=== PATIENT | male | born 1980 | race American Indian/Alaskan Native ===

== ENCOUNTER 2018-11-15 10:33 | Emergency (ER) | payer OTHER ==
[2018-11-15 11:04] LABS: Basophils % (Auto) 0.7 % (0.0-1.8); Eosinophils # (Auto) 0.1 K/mm3 (0.0-0.4); Eosinophils % (Auto) 1.7 % (0.0-4.3); Hematocrit 45.8 % (35.5-45.6); Lymphocytes # (Auto) 2.8 K/mm3 (1.2-5.4); Lymphocytes % (Auto) 37.7 % (13.4-35.0); Mean Corpuscular HGB Conc 35 % (32-34); Mean Corpuscular Volume 91 fl (84-94); Monocytes # (Auto) 0.3 K/mm3 (0.0-0.8); Monocytes % (Auto) 3.5 % (0.0-7.3); Platelet Count 216 K/mm3 (140-440); Red Blood Count 5.03 M/mm3 (3.65-5.03); Red Cell Distribution Width 13.1 % (13.2-15.2)
--- NOTE | 2018-11-15 11:04 | Emergency Department Report ---
HPI - General Chief Complaint: Abdominal Pain Time Seen by Provider: 11/15/18 10:39 - HPI HPI: 38-year-old -[place] male presents to the emergency department with complaint of some left lower quadrant abdominal pain. The patient says that he's been dealing with some intermittent abdominal pains over the past 2 weeks that previously was more generalized lower abdomen and felt like he had a pulled muscle. However this morning he had some nausea and vomiting, diarrhea, and this left lower quadrant abdominal pain. He denies any dysuria, penile discharge, fever, back pain. The patient's is very concerned that he has gonorrhea and/or chlamydia as she says that she got it 5 years ago and that it "must have come from him." He did not take anything for her symptoms prior to presentation. He denies any past medical history. No recent travel or sick contacts at home. Patient also says that when he was vomiting earlier, he noticed some blood in the vomit. However this resolved upon EMS arrival. ED Past Medical Hx - Past Medical History Previous Medical History?: No - Surgical History Past Surgical History?: No - Social History Smoking Status: Current Every Day Smoker Substance Use Type: None - Medications Home Medications: Home Medications Medication Instructions Recorded Confirmed Last Taken Type ALBUTEROL Inhaler (OR & NICU) 2 puff IH QID PRN #1 inhalation 08/03/18 Unknown Rx [ProAir HFA Inhaler] Azithromycin [Zithromax] 250 mg PO DAILY #6 tablet 08/03/18 Unknown Rx predniSONE [Deltasone] 20 mg PO QDAY #5 tab 08/03/18 Unknown Rx HYDROcodone/APAP 5-325 [[place] 1 each PO Q6HR PRN #10 tablet 11/15/18 Unknown Rx 5/325] Sulfamethoxazole/Trimethoprim 1 each PO BID #10 tablet 11/15/18 Unknown Rx [Bactrim DS TAB] Tamsulosin [Flomax] 0.4 mg PO QDAY #5 cap 11/15/18 Unknown Rx ED Review of Systems ROS: Stated complaint: ABD PAIN Other details as noted in HPI Comment: All other systems reviewed and negative Constitutional: denies: chills, fever Eyes: denies: eye pain, vision change ENT: denies: ear pain, throat pain Respiratory: denies: cough, shortness of breath Cardiovascular: denies: chest pain, palpitations Gastrointestinal: abdominal pain, nausea, vomiting, diarrhea Genitourinary: denies: dysuria, discharge Musculoskeletal: denies: back pain, arthralgia Skin: denies: rash, lesions Neurological: denies: headache, weakness Physical Exam - Physical Exam Vital Signs: Vital Signs 11/15/18 11/15/18 10:37 10:41 Temperature 98.3 F Pulse Rate 56 L Respiratory 20 20 Rate Blood Pressure 159/103 [Left] O2 Sat by Pulse 99 99 Oximetry Physical Exam: GENERAL: The patient is well-developed well-nourished. HENT: Normocephalic. Atraumatic. Patient has moist mucous membranes. EYES: Extraocular motions are intact. NECK: Supple. Trachea is midline. CHEST/LUNGS: Clear to auscultation. There is no respiratory distress noted. HEART/CARDIOVASCULAR: Regular. There is no tachycardia. There is no murmur. ABDOMEN: Abdomen is soft. Unable to reproduce left lower quadrant abdominal pain to palpation. No guarding. Patient has normal bowel sounds. There is no abdominal distention. SKIN: Skin is warm and dry. NEURO: The patient is awake, alert, and oriented. The patient is cooperative. The patient has no focal neurologic deficits. The patient has normal speech. MUSCULOSKELETAL: There is no tenderness or deformity. There is no limitation range of motion. There is no evidence of acute injury. ED Course Vital Signs 11/15/18 11/15/18 10:37 10:41 Temperature 98.3 F Pulse Rate 56 L Respiratory 20 20 Rate Blood Pressure 159/103 [Left] O2 Sat by Pulse 99 99 Oximetry ED Medical Decision Making - Lab Data Result diagrams: 11/15/18 10:49 11/15/18 10:49 - Radiology Data Radiology results: report reviewed, image reviewed interpreted by me: Abdominal x-ray shows nonspecific nonobstructive bowel gas. CT ABDOMEN PELVIS WITHOUT CONTRAST: HISTORY: Left lower quadrant abdominal pain. COMPARISON: none. TECHNIQUE: Helical CT in 1.25mm intervals without IV contrast. Sagittal and coronal reconstructions. FINDINGS: Lung bases: Normal. Liver: Normal. Biliary system: Normal. Pancreas: Normal. Spleen: Normal. Kidneys/ureters/bladder: A 3 mm calculus is identified in the distal left ureter. There is minimal left hydroureter. There are also a few scattered punctate calyceal stones in both kidneys. No focal renal lesion. The bladder and prostate gland are unremarkable. Adrenal glands: Normal. Aorta: Normal. Intestines: Normal. Appendix: Normal. Pelvic viscera: Normal. Ascites: None. Adenopathy: None. Musculoskeletal: Normal. IMPRESSION: Bilateral punctate renal stones. 3 mm calculus in the distal left ureter with minimal left hydroureter. Transcribed By: TTR Dictated By: RADHA STUBBS JR, MD Electronically Authenticated By: RADHA STUBBS JR, MD Signed Date/Time: 11/15/18 1237 - Medical Decision Making This patient presents to the emergency department with some left-sided abdominal pain, nausea and vomiting. Labs have been mostly unremarkable except for his urinalysis shows significant microscopic hematuria. A CT scan of the abdomen and pelvis without contrast was done that shows a 3 mm stone in the left distal ureter that is most likely the cause of his symptoms. Vital signs stable throughout his ED course included being afebrile. There is been no further naus ea or vomiting within the emergency department. The small amount of blood seen previously during vomiting is most likely secondary to irritation of the esophageal lining. I discussed the labs and imaging results with the patient. He will strain his urine. He will be given a prescription for antibiotics, Flomax and pain medication. He'll be given a referral for urology and primary care. The patient's is very focused on the fact that she previously had gotten gonorrhea and chlamydia and thinks that he could be the only source and that he has never been treated. Despite the fact that the patient denies any dysuria or any discharge or lesions, the patient will be empirically treated with some Rocephin and azithromycin. He will return to the ER with any worsening of his symptoms or any acute distress. - Differential Diagnosis nephrolithiasis, pyelonephritis, UTI, colitis, diverticulitis Critical Care Time: No Critical care attestation.: If time is entered above; I have spent that time in minutes in the direct care of this critically ill patient, excluding procedure time. ED Disposition Clinical Impression: Kidney stone on left side, Renal colic Disposition: TO HOME OR SELFCARE Is pt being admited?: No Condition: Stable Instructions: Kidney Stones (ED), Renal Colic (ED), How to Strain Your Urine (ED) Additional Instructions: Please follow up with a primary care physician in the next few days. I am giving you a referral for a local urologist, Dr. Corona, to follow up regarding your kidney stones. Return to the emergency Department with any worsening of your symptoms, including any fever, intractable vomiting, increased or new pain, with any acute distress. You have been prescribed a medication that is sedating and therefore should not be taken prior to driving, working, and responsible for children and in no way should be mixed with alcohol of any quantity. Prescriptions: Sulfamethoxazole/Trimethoprim [Bactrim DS TAB] 1 each PO BID #10 tablet Tamsulosin [Flomax] 0.4 mg PO QDAY #5 cap HYDROcodone/APAP 5-325 [[place] 5/325] 1 each PO Q6HR PRN #10 tablet PRN Reason: Pain Referrals: RICKI CORONA MD [Staff Physician] - 2-3 Days GUY MOSELEY MD [Staff Physician] - 2-3 Days [facility] [Outside] - 2-3 Days Time of Disposition: 13:31
[2018-11-15 11:08] LABS: Bilirubin,Urine NEG (Negative); Blood,Urine LG (Negative); Color,Urine Yellow (Yellow); Mucus,Urine 3+ /HPF
[2018-11-15 11:26] LABS: Alanine Aminotransferase 84 units/L (7-56); Albumin 4.8 g/dL (3.9-5); BUN/Creatinine Ratio 13; Blood Urea Nitrogen 13 mg/dL (9-20); Calcium 9.5 mg/dL (8.4-10.2); Hemolysis Index 61
[2018-11-15 11:31] LABS: Bilirubin,Direct < 0.2 mg/dL (0-0.2)
[2018-11-15] MEDS ORDERED: PERCOCET 5/325 PO ONE (12:11)
--- NOTE | 2018-11-15 12:37 | XRay Report ---
ABDOMEN, 2 views: History: Abdominal pain. There is no evidence of free air beneath the diaphragms. The gas pattern within the abdomen is unremarkable. There is no evidence of bowel dilatation, significant air-fluid levels, or pathologic calcifications. Organ shadows are unremarkable. IMPRESSION: Unremarkable abdomen.
--- NOTE | 2018-11-15 12:42 | Cat Scan Report ---
CT ABDOMEN PELVIS WITHOUT CONTRAST: HISTORY: Left lower quadrant abdominal pain. COMPARISON: none. TECHNIQUE: Helical CT in 1.25mm intervals without IV contrast. Sagittal and coronal reconstructions. FINDINGS: Lung bases: Normal. Liver: Normal. Biliary system: Normal. Pancreas: Normal. Spleen: Normal. Kidneys/ureters/bladder: A 3 mm calculus is identified in the distal left ureter. There is minimal left hydroureter. There are also a few scattered punctate calyceal stones in both kidneys. No focal renal lesion. The bladder and prostate gland are unremarkable. Adrenal glands: Normal. Aorta: Normal. Intestines: Normal. Appendix: Normal. Pelvic viscera: Normal. Ascites: None. Adenopathy: None. Musculoskeletal: Normal. IMPRESSION: Bilateral punctate renal stones. 3 mm calculus in the distal left ureter with minimal left hydroureter.
[2018-11-15] MEDS ORDERED: ZITHROMAX PO ONE (12:52)
[2018-11-15] MEDS ORDERED: ROCEPHIN IM ONE (12:52)
[2018-11-15] MEDS ORDERED: XYLOCAINE 1% MPF 5 mL INFILTRATI ONE (12:52)
[2018-11-15 14:24] VITALS: BP 123/73
== END 2018-11-15 14:23 | disposition home or self-care (01) ==
LOC: ED 10:33
DX: N20.0 Calculus of kidney (principal); F17.200 Nicotine dependence, unspecified, uncomplicated
CPT/HCPCS: 36415; 74019; 74176; 80048; 80076; 81001; 83690; 85025; 87591; 96372; 99285; J0696

== ENCOUNTER 2021-08-24 20:44 | Emergency (ER) | payer SELFPAY ==
[2021-08-24 21:55] VITALS: BP 114/66
--- NOTE | 2021-08-25 00:16 | Emergency Department Report ---
ED General Adult HPI - General Chief complaint: Sore Throat Stated complaint: JOCKE ITCH/ DENTAL Source: patient Mode of arrival: Ambulatory Limitations: No Limitations - History of Present Illness MD Complaint: Sore throat -: Gradual, week(s) (3) Location: mouth Radiation: non-radiation Severity scale (0 -10): 6 Quality: burning, aching, sharp Consistency: constant Improves with: none Worsens with: eating, other (swallowing) Associated Symptoms: denies other symptoms. denies: confusion, chest pain, cough, diaphoresis, fever/chills, headaches, loss of appetite, malaise, nausea/vomiting, rash, shortness of breath, syncope, weakness Treatments Prior to Arrival: none - Related Data Previous Rx's Medication Instructions Recorded Last Taken Type Albuterol Mdi (or & Nicu Only) 2 puff IH QID PRN #1 inhalation 08/03/18 Unknown Rx [ProAir HFA Inhaler] Azithromycin [Zithromax] 250 mg PO DAILY #6 tablet 08/03/18 Unknown Rx predniSONE [Deltasone] 20 mg PO QDAY #5 tab 08/03/18 Unknown Rx HYDROcodone/APAP 5-325 [[place] 1 each PO Q6HR PRN #10 tablet 11/15/18 Unknown Rx 5/325] Sulfamethoxazole/Trimethoprim 1 each PO BID #10 tablet 11/15/18 Unknown Rx [Bactrim DS TAB] Tamsulosin [Flomax] 0.4 mg PO QDAY #5 cap 11/15/18 Unknown Rx Ibuprofen [Motrin] 600 mg PO Q8H PRN #30 tablet 08/25/21 Unknown Rx Lidocaine Viscous 2% 10 ml PO Q6H PRN #150 ml 08/25/21 Unknown Rx Nystatin [Nystatin SUSP] 10 ml PO QID #400 ml 08/25/21 Unknown Rx Allergies Allergy/AdvReac Type Severity Reaction Status Date / Time No Known Allergies Allergy Verified 08/03/18 10:26 ED Review of Systems ROS: Stated complaint: JOCKE ITCH/ DENTAL Other details as noted in HPI ED Past Medical Hx - Past Medical History Previous Medical History?: Yes - Surgical History Past Surgical History?: Yes - Social History Smoking Status: Never Smoker - Medications Home Medications: Home Medications Medication Instructions Recorded Confirmed Last Taken Type Albuterol Mdi (or & Nicu Only) 2 puff IH QID PRN #1 inhalation 08/03/18 Unknown Rx [ProAir HFA Inhaler] Azithromycin [Zithromax] 250 mg PO DAILY #6 tablet 08/03/18 Unknown Rx predniSONE [Deltasone] 20 mg PO QDAY #5 tab 08/03/18 Unknown Rx HYDROcodone/APAP 5-325 [[place] 1 each PO Q6HR PRN #10 tablet 11/15/18 Unknown Rx 5/325] Sulfamethoxazole/Trimethoprim 1 each PO BID #10 tablet 11/15/18 Unknown Rx [Bactrim DS TAB] Tamsulosin [Flomax] 0.4 mg PO QDAY #5 cap 11/15/18 Unknown Rx Ibuprofen [Motrin] 600 mg PO Q8H PRN #30 tablet 08/25/21 Unknown Rx Lidocaine Viscous 2% 10 ml PO Q6H PRN #150 ml 08/25/21 Unknown Rx Nystatin [Nystatin SUSP] 10 ml PO QID #400 ml 08/25/21 Unknown Rx ED Physical Exam - General Limitations: No Limitations ED Course Vital Signs 08/24/21 21:47 Temperature 98.3 F Pulse Rate 91 H Respiratory 18 Rate Blood Pressure 114/66 O2 Sat by Pulse 98 Oximetry Critical care attestation.: If time is entered above; I have spent that time in minutes in the direct care of this critically ill patient, excluding procedure time. ED Disposition Clinical Impression: Codi esophagitis Acute pharyngitis Qualifiers: Pharyngitis/tonsillitis etiology: other specified organisms Qualified Code(s): J02.8 - Acute pharyngitis due to other specified organisms Disposition: 01 HOME / SELF CARE / HOMELESS Is pt being admited?: No Does the pt Need Aspirin: No Condition: Stable Instructions: Pharyngitis, [id number], Esophagitis Additional Instructions: Take medication as advised, drink plenty of fluids, follow-up with your primary care physician in 7 to 10 days for reevaluation. Consider following up with the [facility] department for further testing including HIV test. Return to the ED immediately if symptoms get worse. Prescriptions: Lidocaine Viscous 2% 10 ml PO Q6H PRN #150 ml PRN Reason: Sore Throat Ibuprofen [Motrin] 600 mg PO Q8H PRN #30 tablet PRN Reason: Pain Nystatin [Nystatin SUSP] 10 ml PO QID #400 ml Referrals: [facility] [Provider Group] - 7-10 days [facility] [Outside] - 7-10 days Time of Disposition: 00:12 Print Language: POLISH
== END 2021-08-25 00:47 | disposition home or self-care (01) ==
LOC: ED 20:44
DX: B37.81 Candidal esophagitis (principal); J02.9 Acute pharyngitis, unspecified
CPT/HCPCS: 99282

== ENCOUNTER 2021-11-13 08:28 | Emergency (ER) | payer SELFPAY ==
[2021-11-13 08:38] VITALS: BP 135/88
[2021-11-13] MEDS ORDERED: MAGIC MOUTHWASH 30ML PO NR (09:21)
--- NOTE | 2021-11-13 09:32 | Emergency Department Report ---
Minor Respiratory - HPI Chief Complaint: Sore Throat Stated Complaint: SORE THROAT Time Seen by Provider: 11/13/21 09:05 Duration: 3 Days Pain Location: Throat Severity: moderate Minor Respiratory: Yes Sore Throat, Yes Able to Tolerate Fluids, No Rhinorrhea, No Ear Pain, No Cough, No Sick Contacts, No Hemoptysis, No Chest Pain, No Shortness of Breath, No Fever Other History: Patient is a 41-year-old male that comes to the emergency room with thrush on the top of his mouth. He describes it as a white sticky film. That he can scrape off with his toothbrush. He denies any systemic symptoms. He recently had blood work. He had it done at [facility] and he has an appointment next week for follow-up. He denies any other symptoms. He has normal vital signs. He is taking p.o. He is ambulatory and [id number] ED Review of Systems ROS: Stated complaint: SORE THROAT Other details as noted in HPI Comment: All other systems reviewed and negative ED Past Medical Hx - Past Medical History Previous Medical History?: No - Surgical History Past Surgical History?: No - Family History Family history: no significant - Social History Smoking Status: Never Smoker Substance Use Type: Alcohol - Medications Home Medications: Home Medications Medication Instructions Recorded Confirmed Last Taken Type Albuterol Mdi (or & Nicu Only) 2 puff IH QID PRN #1 inhalation 08/03/18 Unknown Rx [ProAir HFA Inhaler] Azithromycin [Zithromax] 250 mg PO DAILY #6 tablet 08/03/18 Unknown Rx predniSONE [Deltasone] 20 mg PO QDAY #5 tab 08/03/18 Unknown Rx HYDROcodone/APAP 5-325 [[place] 1 each PO Q6HR PRN #10 tablet 11/15/18 Unknown Rx 5/325] Sulfamethoxazole/Trimethoprim 1 each PO BID #10 tablet 11/15/18 Unknown Rx [Bactrim DS TAB] Tamsulosin [Flomax] 0.4 mg PO QDAY #5 cap 11/15/18 Unknown Rx Ibuprofen [Motrin] 600 mg PO Q8H PRN #30 tablet 08/25/21 Unknown Rx Lidocaine Viscous 2% 10 ml PO Q6H PRN #150 ml 08/25/21 Unknown Rx Nystatin [Nystatin SUSP] 10 ml PO QID #400 ml 11/13/21 Unknown Rx Minor Respiratory Exam - Exam General: Vital signs noted. No distress. Alert and acting appropriately. HEENT: Yes Moist Mucous Membranes (thrush top of mouth), No Pharyngeal Erythema, No Pharyngeal Exudates, No Rhinorrhea, No Conjuctival Injection, No Frontal Tenderness, No Maxillary Tenderness Ear: Neither TM Bulge, Neither TM Erythema, Neither EAC Pain, Neither EAC Discharge Neck: Yes Supple, No Adenopathy Lungs: Yes Good Air Exchange, No Wheezes, No Ronchi, No Stridor, No Cough, No Labored Respirations, No Retractions, No Use of Accessory Muscles, No Other Abnormal Lung Sounds Heart: Yes Regular, No Murmur Abdomen: Yes Normal Bowel Sounds, No Tenderness, No Peritoneal Signs Skin: No Rash, No Edema Neurologic: Alert and oriented, no deficits. Musculoskeletal: Unremarkable. ED Course Vital Signs 11/13/21 08:37 Temperature 98.5 F Pulse Rate 88 Respiratory 18 Rate Blood Pressure 135/88 O2 Sat by Pulse 98 Oximetry ED Medical Decision Making - Medical Decision Making Vital Signs 11/13/21 08:37 Temperature 98.5 F Pulse Rate 88 Respiratory 18 Rate Blood Pressure 135/88 O2 Sat by Pulse 98 Oximetry Patient comes to the ER with thrush on the roof of his mouth. He recently saw [facility] he did a bunch of lab work. He has a follow-up appointment with them next week. However, his girlfriend became alarmed and sent him to the ER for treatment of his STD. He denies any dysuria or penile discharge. No penile lesions. He does have thrush on the top of his mouth. Have given him a dose of nystatin here in the ER. Given that he has had recent lab work I am not redoing labs. He has no acute life-threatening injury. No chest pain. No shortness of breath. He has normal vital signs. He is ambulatory, nontoxic [id number]. He is taking p.o. Patient being discharged home with discharge plan of care including diet, activity, medications and follow-up - Differential Diagnosis Thrush Critical care attestation.: If time is entered above; I have spent that time in minutes in the direct care of this critically ill patient, excluding procedure time. ED Disposition Clinical Impression: Thrush Disposition: 01 HOME / SELF CARE / HOMELESS Is pt being admited?: No Does the pt Need Aspirin: No Condition: Stable Instructions: Oral Thrush, Adult, [id number] Additional Instructions: Medications as ordered below Do not take antibiotics. This will make it worse Diet and activity as tolerated Stay well-hydrated Motrin or Tylenol for pain Follow-up with primary care provider for ongoing care. Have given you referral below Follow-up with clinic for your lab work Prescriptions: Nystatin [Nystatin SUSP] 10 ml PO QID #400 ml Referrals: NUVIA GOTTI MD [Primary Care Provider] - 3-5 Days Forms: Work/School Release Form(ED) Time of Disposition: 09:33
== END 2021-11-13 10:11 | disposition home or self-care (01) ==
LOC: ED 08:28
DX: B37.9 Candidiasis, unspecified (principal); F10.20 Alcohol dependence, uncomplicated
CPT/HCPCS: 99282